=== PATIENT | female | born 1930 | race Caucasian/White ===

== ENCOUNTER 2016-04-17 18:40 | Inpatient (IN) | payer OTHER, BC ==
--- NOTE | 2016-04-17 19:28 | EDPHY ---
H & P Time Seen by Provider: 04/17/16 19:12 HPI/ROS: CHIEF COMPLAINT: Right hip pain HISTORY OF PRESENT ILLNESS: The patient is an 85-year-old female who presents to the emergency department after falling onto her right hip. Patient states she had a mechanical fall. She tripped and fell. She now has moderate pain on her right hip. It does not radiate. It is worse when she rotates her hip or tries to lift her femur. She denies numbness or tingling. She denies back pain. She did not strike her head or lose consciousness. No chest pain or shortness of breath. No preceding symptoms. The patient takes Coumadin 2.5 mg daily for atrial fibrillation REVIEW OF SYSTEMS: My complete review of systems is negative except as mentioned in the HPI. Smoking Status: Former smoker Physical Exam: Vitals noted GENERAL: Well-appearing, in no acute distress, alert. HEAD: No evidence of trauma. EYES: PERRLA, EOMI, normal to inspection. ENT: Airway intact, no dental or oral injury, no malocclusion, no hemotympanum , normal external examination. NECK: The trachea is midline. There is no crepitus. The C-spine is nontender. NEXUS criteria is negative (no midline tenderness, no distracting injury, no altered mental status, no recent alcohol use, no focal neurologic deficit). RESPIRATORY: Clear to auscultation bilaterally, no rales, rhonchi or wheezing. CVS: Regular rate and rhythm, no rubs, murmurs, or gallops. ABDOMEN: Soft, nontender. Pelvis: Stable. BACK: Normal to inspection, no spinal tenderness. SKIN: Normal color, warm, dry. No pallor or diaphoresis. EXTREMITIES: Right upper extremity: Atraumatic. No visible signs of trauma. No tenderness palpation. Neurovascular intact distally. Left upper extremity: Atraumatic. No visible signs of trauma. No tenderness palpation. Neurovascular intact distally. Right lower extremity: Tenderness to palpation of the right hip. No skin tenting or notable bruising. The right leg is shortened. Neurovascularly intact distally. Patient has discomfort with rotation of her right hip. Left lower extremity: Atraumatic. No visible signs of trauma. No tenderness palpation. Neurovascular intact distally. Atraumatic, neurovascularly intact distally in all extremities, pelvis is stable , hips with full range of motion, moves all extremities freely. NEURO/PSYCH: Alert and oriented x 3, GCS 15, normal mood and affect. Constitutional: Initial Vital Signs Temperature (C) 36.2 C 04/17/16 18:45 Heart Rate 93 04/17/16 18:45 Respiratory Rate 18 04/17/16 18:45 Blood Pressure 130/88 H 04/17/16 18:45 O2 Sat (%) 96 04/17/16 18:45 O2 Delivery Mode Room Air Allergies/Adverse Reactions: No Known Allergies Allergy (Unverified 04/17/16 18:49) Home Medications: Medication Instructions Recorded Cholecalciferol Vit D3 [Vitamin D3 50,000 unit PO Q30D 04/17/16 (*)] Donepezil HCl [Aricept 5 MG (*)] 10 mg PO DAILY 04/17/16 Escitalopram Oxalate [Lexapro] 20 mg PO DAILY 04/17/16 Furosemide [Lasix 20 MG (*)] 20 mg PO DAILY 04/17/16 Lisinopril [Zestril 2.5 mg (*)] 2.5 mg PO DAILY 04/17/16 Metoprolol Tartrate [Lopressor 25 25 mg PO BID 04/17/16 mg (*)] Mirtazapine [Remeron] 15 mg PO HS 04/17/16 Warfarin Sodium [Coumadin 2.5MG 2.5 mg PO DAILY16 04/17/16 (*)] Medical Decision Making - Diagnostics EKG Interpretation: Atrial fibrillation with V paced complexes at 88. ED Course/Re-evaluation: In the emergency department I discussed possible etiologies with the patient. I answered all her questions. She consented to x-ray and laboratory studies. Right hip x-ray: Please refer the dictated report by the radiologist. The patient has a subtrochanteric fracture. I discussed case with Dr. Finney. He was in the emergency department to evaluate the patient. I discussed the case with the hospitalist service. They agreed to admit the patient. I discussed the plan with the patient and answered all their questions. Differential Diagnosis: My differential includes but is not limited to fracture, dislocation, contusion , coagulopathy, dysrhythmia, ACS - Data Points Laboratory Results: Laboratory Results 04/17/16 19:35 04/17/16 19:35 04/17/16 04/17/16 04/17/16 19:35 19:35 19:35 WBC 8.58 10^3/uL 10^3/uL (3.80-9.50) RBC 4.19 10^6/uL 10^6/uL (4.18-5.33) Hgb 12.7 g/dL g/dL (12.6-16.3) Hct 38.5 % % (38.0-47.0) MCV 91.9 fL fL (81.5-99.8) MCH 30.3 pg pg (27.9-34.1) MCHC 33.0 g/dL g/dL (32.4-36.7) RDW 15.5 % H % (11.5-15.2) Plt Count 250 10^3/uL 10^3/uL (150-400) MPV 9.8 fL fL (8.7-11.7) Neut % (Auto) 63.5 % % (39.3-74.2) Lymph % (Auto) 28.3 % % (15.0-45.0) [place] % (Auto) 6.3 % % (4.5-13.0) Eos % (Auto) 0.9 % % (0.6-7.6) Baso % (Auto) 0.8 % % (0.3-1.7) Nucleat RBC Rel Count 0.0 % % (0.0-0.2) Absolute Neuts (auto) 5.44 10^3/uL 10^3/uL (1.70-6.50) Absolute Lymphs (auto) 2.43 10^3/uL 10^3/uL (1.00-3.00) Absolute Monos (auto) 0.54 10^3/uL 10^3/uL (0.30-0.80) Absolute Eos (auto) 0.08 10^3/uL 10^3/uL (0.03-0.40) Absolute Basos (auto) 0.07 10^3/uL 10^3/uL (0.02-0.10) Absolute Nucleated RBC 0.00 10^3/uL 10^3/uL (0-0.01) Immature Gran % 0.2 % % (0.0-1.1) Immature Gran # 0.02 10^3/uL 10^3/uL (0.00-0.10) PT 24.8 SEC H SEC (12.0-15.0) INR 2.22 H (0.83-1.16) APTT 30.3 SEC SEC (23.0-38.0) Sodium 140 mEq/L mEq/L (134-144) Potassium 3.1 mEq/L L mEq/L (3.5-5.2) Chloride 102 mEq/L mEq/L (97-110) Carbon Dioxide 25 mEq/l mEq/l (22-31) Anion Gap 13 mEq/L mEq/L (8-16) BUN 16 mg/dL mg/dL (7-23) Creatinine 0.6 mg/dL mg/dL (0.6-1.0) Estimated GFR > 60 Glucose 115 mg/dL H mg/dL (70-100) Calcium 8.9 mg/dL mg/dL (8.5-10.4) Departure - Departure Disposition: [facility] Inpatient Acute Clinical Impression: Subtrochanteric fracture of femur Qualifiers: Encounter type: initial encounter Fracture type: closed Fracture alignment: displaced Laterality: right Qualified Code(s): S72.21XA - Displaced subtrochanteric fracture of right femur, initial encounter for closed fracture Condition: Good Referrals: Juancarlos Bailey MD [Primary Care Provider] - As per Instructions
[2016-04-17 19:47] LABS: % IMMATURE GRANULYOCYTES 0.2 % (0.0-1.1); ABSOLUTE IMMATURE GRANULOCYTES 0.02 10^3/uL (0.00-0.10); ADD DIFF? NO; ADD MORPH? NO; ADD SCAN? NO; ATYPICAL LYMPHOCYTE FLAG 0 (0-99); FRAGMENT RBC FLAG 0 (0-99); HEMATOCRIT 38.5 % (38.0-47.0); HEMOGLOBIN 12.7 g/dL (12.6-16.3); LEFT SHIFT FLG 0 (0-99); LIPEMIA HEMOLYSIS FLAG 80 (0-99); MEAN CELL HEMOGLOBIN 30.3 pg (27.9-34.1); MEAN CELL VOLUME 91.9 fL (81.5-99.8); MEAN PLATELET VOLUME 9.8 fL (8.7-11.7); PLATELET CLUMPS FLAG 0 (0-99); PLATELET COUNT 250 10^3/uL (150-400); RED BLOOD CELL COUNT 4.19 10^6/uL (4.18-5.33); RED CELL DISTRIBUTION WIDTH 15.5 % (11.5-15.2)
[2016-04-17 19:55] LABS: APTT 30.3 SEC (23.0-38.0); INR 2.22 (0.83-1.16); PROTIME(PATIENT) 24.8 SEC (12.0-15.0)
[2016-04-17 19:56] LABS: ANION GAP 13 mEq/L (8-16); CALCIUM 8.9 mg/dL (8.5-10.4); CARBON DIOXIDE 25 mEq/l (22-31); CHLORIDE 102 mEq/L (97-110); CREATININE 0.6 mg/dL (0.6-1.0); GLOMERULAR FILTRATION RATE > 60; GLUCOSE 115 mg/dL (70-100); POTASSIUM 3.1 mEq/L (3.5-5.2); SODIUM 140 mEq/L (134-144)
--- NOTE | 2016-04-17 20:13 | CPEKG ---
Heart Rate: 88 RR Interval: 682 QRSD Interval: 144 QT Interval: 468 QTC Interval: 567 QRS [place]: 121 T Wave [place]: -84 EKG Severity - ABNORMAL ECG - EKG Impression: AFIB/FLUT AND V-PACED COMPLEXES EKG Impression: RBBB AND LPFB Electronically Signed By: Staci Lock 17-Apr-2016 22:25:36
--- NOTE | 2016-04-17 20:22 | PDCONSULT ---
Jewel Inspector Note: CC: R hip pain HPI: 85y/o F presents to the ED c/o R hip pain s/p fall this evening. Pt states she was at a restaurant this evening when she tripped and fell. She has since had localized pain in the R hip, she is unable to bear weight. Pt states she is comfortable while lying down, the pain bothers her when she tries to move the RLE. At baseline pt ambulates independently without difficulty and lives in an independent living facility. Pt denies any numbness or tingling. Pt has had a previous wrist fracture. She is treated for a-fib with warfarin daily. Pt also takes medication for depression, sleep and dementia. ALLERGIES: NKDA REVIEW OF SYSTEMS: Otherwise negative throughout a 10-point review. Vital Signs Temp Pulse Resp BP Pulse Ox 36.2 C 93 18 130/88 H 96 04/17/16 18:45 04/17/16 18:45 04/17/16 18:45 04/17/16 18:45 04/17/16 18:45 Vital Signs Temp Pulse Resp BP Pulse Ox 36.2 C 93 18 130/88 H 96 04/17/16 18:45 04/17/16 18:45 04/17/16 18:45 04/17/16 18:45 04/17/16 18:45 Laboratory Results 04/17/16 19:35 04/17/16 19:35 PT 24.8 SEC (12.0-15.0) H 04/17/16 19:35 INR 2.22 (0.83-1.16) H 04/17/16 19:35 Physical Exam Temp Pulse Resp BP Pulse Ox 36.2 C 93 18 130/88 H 96 04/17/16 18:45 04/17/16 18:45 04/17/16 18:45 04/17/16 18:45 04/17/16 18:45 Constitutional: no apparent distress Eyes: PERRL, EOMI Ears, Nose, Mouth, Throat: moist mucous membranes, hearing normal, no oral mucosal ulcers Peripheral Pulses: 2+: dorsalis-pedis (R), dorsalis-pedis (L) Respiratory: no respiratory distress Gastrointestinal: soft, non-tender abdomen Skin: warm, normal color, no rashes or abrasions, no fluctuance, no induration, other (no ecchymosis) Musculoskeletal: full muscle strength, no joint effusions, joint tenderness ( minimal TTP R greater trochanter), pain with ROM (R hip and knee ROM limited by pain. FROM of R ankle and foot with good strength), other (Calves soft, non- tender, negative George's, no pedal edema) Neurologic: AAOx3, sensation intact bilaterally Psychiatric: interacting appropriately Lymph, Heme, Immunologic: no cervical LAD Assessment & Plan Assessment: R intertrochanteric fracture s/p mechanical fall today. Pt will need to be taken to the OR for IM nail fixation of the R hip, cannot do fixation tonight because INR is too high. Will need INR to be lower before surgery. Plan: - Possible surgery tomorrow depending on INR level - Follow INR, possible vitamin K or FFP to reverse - Continue pain management - SCDs/TEDs for mechanical prophylaxis - NPO after midnight - MEMO ENGLISH
[2016-04-17] MEDS ORDERED: PHYTONADIONE 2 MG in NS 50 ML IV ONE (20:50)
[2016-04-17] MEDS ORDERED: NON-FORMULARY NEW DRUG (Mirtazapine [Remeron] 15 MG) PO SCH (21:00)
[2016-04-17] MEDS ORDERED: ONDANSETRON DISINTEGRATING 4 MG TAB PO PRN (21:32)
[2016-04-17] MEDS ORDERED: ONDANSETRON 4 MG/2 ML VIAL IVP PRN (21:32)
[2016-04-17] MEDS: MIRTAZAPINE 15 MG TAB PO SCH (21:41)
[2016-04-17] MEDS ORDERED: NS 1,000 ML IV SCH (21:45)
[2016-04-17] MEDS: METOPROLOL TARTRATE 25 MG TAB PO SCH (21:47)
[2016-04-17] MEDS: ACETAMINOPHEN 500 MG TAB PO SCH (21:48)
--- NOTE | 2016-04-17 22:02 | GHP ---
DATE OF ADMISSION: 04/17/2016 HISTORY OF PRESENT ILLNESS: The patient is an 85-year-old female with a history of atrial fibrillat ion and a mechanical fall today while leaving a restaurant. She fell on her right hip. She was tadeo ble to get up. She denies antecedent chest pain, shortness of breath, nausea, vomiting, diarrhea, l oss of consciousness, or presyncopal symptoms. This is a mechanical fall. She was brought to the e mergency department where she was found to have a right subtrochanteric fracture. The patient at baseline prior to this was able to achieve greater than 4 METs without difficulty, wi thout undue shortness of breath or chest pain. She has no history of coronary artery disease. She does have a pacer and atrial fibrillation. REVIEW OF SYSTEMS: Complete 10-point review of systems conducted and negative except as noted in th e HPI. PAST MEDICAL HISTORY: 1. Atrial fibrillation. 2. Pacemaker. 3. Mild dementia. 4. Hypertension. 5. Depression. HOME MEDICATIONS: Vitamin D3, mirtazapine, metoprolol, lisinopril, warfarin, furosemide, escitalopr am and donepezil. ALLERGIES: She has no known drug allergies. SOCIAL HISTORY: She drinks alcohol on Wednesdays and occasionally on the weekends. She is a nonsmo ker. She is DNR. She lives at [facility]. FAMILY HISTORY: Daughter is present and at the bedside and healthy. PHYSICAL EXAMINATION: VITAL SIGNS: Temperature 37, blood pressure 129/75, pulse 86, breathing 14 t imes a minute, 95% on room air. GENERAL: In no acute distress. HEENT: Sclerae anicteric. Oropharynx clear. Mucous membranes are moist. NECK: Supple without ly mphadenopathy or JVD. LUNGS: Clear to auscultation bilaterally. HEART: S1, S2. ABDOMEN: Soft, nontender, nondistended. LOWER EXTREMITIES: Without edema. Her right leg is not foreshortened nor is it externally rotated. LABS: White count 8.86, hematocrit 38.5. Platelets are 250,000. INR is 2.2. Sodium 140, potassiu m 3.1, chloride 101, bicarb 25, BUN 16, creatinine 0.6. TEST DATA: EKG interpreted by me shows a paced rhythm. Hip x-ray shows left subtrochanteric fractu re. I have discussed the case with Dr. Staci Lock. ASSESSMENT/PLAN: 1. 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 2. Underwent preoperative cardiac evaluation. The patient can achieve greater than 4 METs. May pr oceed to the OR without further workup or intervention. 3. Coagulopathy. The patient has an elevated INR of 2.2. She is on Coumadin. Will hold that. We have given her 2 mg of IV vitamin K and will repeat it early in the morning. If it is not less marquez n 1.5, will give an additional 2 mg of vitamin K. I anticipate that it will be. 4. Pain: Scheduled Tylenol, p.r.n. oxycodone. 5. Prophylaxis. Therapeutically anticoagulated. When her INR is less than 1.5, she needs pharmaco logic prophylaxis. 6. Code status. She is do not resuscitate. Inpatient status. /[id number]/MODL
[2016-04-18 05:25] LABS: % IMMATURE GRANULYOCYTES 0.3 % (0.0-1.1); ABSOLUTE IMMATURE GRANULOCYTES 0.03 10^3/uL (0.00-0.10); ADD DIFF? NO; ADD MORPH? NO; ADD SCAN? NO; ATYPICAL LYMPHOCYTE FLAG 0 (0-99); FRAGMENT RBC FLAG 0 (0-99); HEMATOCRIT 30.2 % (38.0-47.0); LEFT SHIFT FLG 0 (0-99); LIPEMIA HEMOLYSIS FLAG 80 (0-99); MEAN CELL HEMOGLOBIN 29.9 pg (27.9-34.1); MEAN CELL HEMOGLOBIN CONCENTR. 33.1 g/dL (32.4-36.7); MEAN CELL VOLUME 90.4 fL (81.5-99.8); MEAN PLATELET VOLUME 10.2 fL (8.7-11.7); PLATELET CLUMPS FLAG 0 (0-99); PLATELET COUNT 196 10^3/uL (150-400); RED BLOOD CELL COUNT 3.34 10^6/uL (4.18-5.33); RED CELL DISTRIBUTION WIDTH 15.5 % (11.5-15.2)
[2016-04-18] MEDS: ACETAMINOPHEN 500 MG TAB PO SCH ×3 (05:27→21:16)
[2016-04-18 05:30] LABS: INR 1.64 (0.83-1.16); PROTIME(PATIENT) 19.5 SEC (12.0-15.0)
[2016-04-18 05:57] LABS: ANION GAP 7 mEq/L (8-16); CALCIUM 8.3 mg/dL (8.5-10.4); CARBON DIOXIDE 26 mEq/l (22-31); CHLORIDE 106 mEq/L (97-110); CREATININE 0.6 mg/dL (0.6-1.0); GLOMERULAR FILTRATION RATE > 60; GLUCOSE 98 mg/dL (70-100); POTASSIUM 3.5 mEq/L (3.5-5.2); SODIUM 139 mEq/L (134-144)
[2016-04-18] MEDS ORDERED: LISINOPRIL 2.5 MG TAB PO SCH (09:00)
[2016-04-18] MEDS ORDERED: NON-FORMULARY NEW DRUG (Escitalopram Oxalate [Lexapro] 20 MG) PO SCH (09:00)
[2016-04-18] MEDS ORDERED: ceFAZolin 2 GM/DEXTROSE 100 ML IV ONE (09:22)
[2016-04-18] MEDS: ESCITALOPRAM OXALATE 10 MG TAB PO SCH (13:27)
[2016-04-18] MEDS: DONEPEZIL HCL 5 MG TAB PO SCH (13:27)
[2016-04-18] MEDS: METOPROLOL TARTRATE 25 MG TAB PO SCH ×2 (13:28→21:13)
--- NOTE | 2016-04-18 13:31 | SOAPPROG ---
SOAP Progress Note Assessment/Plan: Assessment: This is more of in intertroch hip fx pattern Plan: To OR this evening for compression hip screw Correct elevated PT/INR with FFP. Keep NPO 04/18/16 13:27 Subjective: Moderate Pain. Did not get much sleep Objective: Vital Signs Temp Pulse Resp BP Pulse Ox 37.1 C 83 16 102/65 95 04/18/16 08:02 04/18/16 08:02 04/18/16 08:02 04/18/16 08:02 04/18/16 08:02 Laboratory Results 04/18/16 04:22 04/18/16 04:22 04/17/16 04/18/16 04/19/16 05:59 05:59 05:59 Intake Total 200 Output Total 200 Balance 0 PT 19.5 SEC (12.0-15.0) H 04/18/16 04:22 INR 1.64 (0.83-1.16) H 04/18/16 04:22 CSMT OK, Moves foot and ankle well Elevated PT/INR ICD10 Worksheet Patient Problems: Problems Problem Status Onset Subtrochanteric fracture of femur Acute
--- NOTE | 2016-04-18 16:07 | HOSPPROG ---
Hospitalist Progress Note Assessment/Plan: # Acute left hip fracture - s/p mechanical fall - hip xray (personally reviewed and interpreted) subtrochanteric fracture - NPO in preparation for OR - reversing INR for OR - pain currently controlled # Atrial Fibrillation - INR 1.8 this am after vit K- rate controlled in 80's oxygen saturations 95% on RA - FFP prior to OR # HTN - BP slightly low this afternoon - will hold lisinopril and decrease metoprolol # diet - NPO # proph - holding for OR # dispo - > 2MN as requiring surgical repair and post op recovery I have discussed the case with Dr. Finney - we will give FFP prior to OR Subjective: feeling fine Objective: Vital Signs Temp Pulse Resp BP Pulse Ox 37.1 C 83 16 102/65 95 04/18/16 08:02 04/18/16 08:02 04/18/16 08:02 04/18/16 13:28 04/18/16 08:02 Laboratory Results 04/18/16 04:22 04/18/16 04:22 04/17/16 04/18/16 04/19/16 05:59 05:59 05:59 Intake Total 200 Output Total 200 Balance 0 PT 19.5 SEC (12.0-15.0) H 04/18/16 04:22 INR 1.64 (0.83-1.16) H 04/18/16 04:22 - Physical Exam Constitutional: appears nourished Eyes: anicteric sclera Ears, Nose, Mouth, Throat: moist mucous membranes Cardiovascular: regular rate and rhythym Respiratory: no respiratory distress Gastrointestinal: normoactive bowel sounds, soft, non-tender abdomen Genitourinary: no bladder fullness Skin: warm, normal color Musculoskeletal: No asymmetric calves Neurologic: AAOx3 Psychiatric: interacting appropriately, not anxious Lymph, Heme, Immunologic: no cervical LAD ICD10 Worksheet Patient Problems: Problems Problem Status Onset Subtrochanteric fracture of femur Acute
[2016-04-18] MEDS ORDERED: BACITRACIN 50,000 UNITS/10 ML SYR IRR ONE (16:26)
[2016-04-18] MEDS ORDERED: POLYMYXIN B SULFATE 500,000 UNIT/10 ML SYR IRR ONE (16:26)
[2016-04-18] MEDS ORDERED: CEFAZOLIN 2 GM/DEXTROSE/100 ML BAG IV ONE (16:44)
[2016-04-18] MEDS ORDERED: MIDAZOLAM 2 MG/2 ML VIAL ONE (16:56)
[2016-04-18] MEDS ORDERED: fentaNYL 100 MCG/2 ML INJ ONE ×2 (17:09→18:06)
[2016-04-18] MEDS ORDERED: PROPOFOL 200 MG/20 ML VIAL ONE (17:10)
[2016-04-18] MEDS ORDERED: LIDOCAINE 2% 5 ML SDV ONE (17:13)
[2016-04-18] MEDS ORDERED: ONDANSETRON 4 MG/2 ML VIAL ONE (18:38)
[2016-04-18] MEDS ORDERED: DEXAMETHASONE 4 MG/ML VIAL ONE (18:38)
[2016-04-18] MEDS ORDERED: PHENYLEPHRINE 10 MG/ML SDV ONE (18:40)
[2016-04-18] MEDS ORDERED: BUPIVACAINE/EPI 0.5% 30 ML SDV ONE (18:53)
[2016-04-18] MEDS ORDERED: TEMAZEPAM 15 MG CAP PO PRN (19:08)
[2016-04-18] MEDS ORDERED: ONDANSETRON 4 MG/2 ML VIAL IVP PRN (19:08)
[2016-04-18] MEDS ORDERED: OXYCODONE/APAP 5/325 TAB PO PRN (19:08)
[2016-04-18] MEDS ORDERED: PROMETHAZINE HCL 25 MG/ML INJ IVP PRN (19:08)
[2016-04-18] MEDS ORDERED: D5W 1/2 NS W/ 20 KCl/L 1,000 ML IV SCH (19:15)
[2016-04-18] MEDS ORDERED: WARFARIN SODIUM 2.5 MG TAB PO ONE (19:30)
[2016-04-18] MEDS: MIRTAZAPINE 15 MG TAB PO SCH (21:11)
--- NOTE | 2016-04-19 03:32 | GOP ---
DATE OF OPERATION: 04/18/2016 SURGEON: Mike Finney MD ANESTHESIA: General. PREOPERATIVE DIAGNOSIS: Right intertrochanteric hip fracture. POSTOPERATIVE DIAGNOSIS: Right intertrochanteric hip fracture. PROCEDURE PERFORMED: Open reduction, internal fixation right intertrochanteric hip fracture with Sy nthes compression hip screw system. FINDINGS: DESCRIPTION OF PROCEDURE: The patient taken to the operating room, administered general anesthesia. Placed in the supine position. Her fracture was reduced on the fracture table under fluoroscopic control. The right hip was prepped and draped in normal sterile fashion. Lateral incision was made through dermal subcutaneous tissues. The bleeders were cauterized. The IT band was then split erika gitudinally. The posterior aspect of the vastus lateralis was then incised with the cautery cutting tip. Vastus lateralis was then reflected anteriorly leaving a cuff posteriorly. The K-wire was pa ssed up through the femoral neck using 135 degree guide under fluoroscopic control. We felt we had good position in both AP and lateral planes. The pin length measured 95 mm. The step-cut drill was then set at the appropriate depth, and drilled over the pin. This was visualized under fluoroscopy . The screw was then placed over the drill guide after fixing the side plate. We elected to use a 4-hole sideplate. The sideplate was then impacted into position. The fracture was visualized and f ound to be excellently reduced. The plate was secured temporarily with a [place] clamp. 4.5 cortica l screws were used to anchor the plate. They measured 40 mm in length proximally, tapering to 34 mm in length distally. The lag screw utilized was a 95 mm length lag screw. We had excellent bone pu rchase. Thorough lavage was performed. An 1/8-inch drain was placed deeply. The vastus lateralis fascia was closed with a 0 Vicryl suture followed by closure of the IT band with a 0 Vicryl suture f ollowed by closure of the subcutaneous tissue with a 2-0 Vicryl suture followed by closure of the de rmis with paola. The drain was hooked up. A sterile compression dressing applied. The patient t olerated procedure well, and was transferred back to recovery in stable condition. There were no op erative complications. COMPLICATIONS: None. /[id number]/MODL
[2016-04-19] MEDS: ACETAMINOPHEN 500 MG TAB PO SCH ×3 (05:43→20:23)
[2016-04-19 06:27] LABS: % IMMATURE GRANULYOCYTES 0.5 % (0.0-1.1); ABSOLUTE IMMATURE GRANULOCYTES 0.04 10^3/uL (0.00-0.10); ADD DIFF? NO; ADD MORPH? NO; ADD SCAN? NO; ATYPICAL LYMPHOCYTE FLAG 0 (0-99); FRAGMENT RBC FLAG 0 (0-99); HEMATOCRIT 21.9 % (38.0-47.0); LEFT SHIFT FLG 10 (0-99); LIPEMIA HEMOLYSIS FLAG 80 (0-99); MEAN CELL HEMOGLOBIN 29.7 pg (27.9-34.1); MEAN CELL VOLUME 92.8 fL (81.5-99.8); MEAN PLATELET VOLUME 10.3 fL (8.7-11.7); PLATELET CLUMPS FLAG 0 (0-99); PLATELET COUNT 139 10^3/uL (150-400); RED BLOOD CELL COUNT 2.36 10^6/uL (4.18-5.33); RED CELL DISTRIBUTION WIDTH 15.5 % (11.5-15.2)
[2016-04-19 06:31] LABS: ANION GAP 6 mEq/L (8-16); CALCIUM 7.9 mg/dL (8.5-10.4); CARBON DIOXIDE 26 mEq/l (22-31); CHLORIDE 106 mEq/L (97-110); CREATININE 0.6 mg/dL (0.6-1.0); GLOMERULAR FILTRATION RATE > 60; GLUCOSE 137 mg/dL (70-100); SODIUM 138 mEq/L (134-144)
--- NOTE | 2016-04-19 07:09 | SOAPPROG ---
SOAP Progress Note Assessment/Plan: Assessment/Plan: Right intertrochanteric femur fracture s/p ORIF w/ DHS performed by Dr. Finney on 04/18/2016 -Cont PT/OT, Partial WB RLE 50% BW -Cont current PO pain regimen, transition to PO meds as tolerated -Cont SCDs and TEDs for VTE chemoprophylaxis -Cont Warfarin for VTE chemoprophylaxis -D/c drain likely tomorrow w/o significant output -Likely d/c to SNF when cleared 04/19/16 10:04 Subjective: Pt seen at bedside. No complaints of significant pain today. Pt states she is tolerating her diet and medications well. She notes she has not yet been up with PT/OT. She denies any new onset dumont, sob, cp, n/v/d, abd pain, n/t. She has no additional concerns or complaints at this time. Objective: Vital Signs Temp Pulse Resp BP Pulse Ox 36.7 C 80 16 92/58 L 97 04/19/16 03:27 04/19/16 03:27 04/19/16 03:27 04/19/16 03:27 04/19/16 03:27 Laboratory Results 04/19/16 04:35 04/19/16 04:35 04/18/16 04/19/16 04/20/16 05:59 05:59 05:59 Intake Total 200 2933 Output Total 200 1000 900 Balance 0 1933 -900 PT 19.5 SEC (12.0-15.0) H 04/18/16 04:22 INR 1.64 (0.83-1.16) H 04/18/16 04:22 Pt seen at bedside today, A&Ox3, appropriate mood and affect, pleasant and cooperative w/ today's exam. VSS. Asymptomatic post surgical anemia likely, cont to monitor. Exam of R LE reveals intact post operative dressing, minimal bleeding noted. Intact paola and drain. Surgical incision is w/o significant erythema, calor or induration. Pt moves leg well. Post calves NTTP , no palpable vascular cords, neg George's bilat. DNVI BLE. ICD10 Worksheet Patient Problems: Problems Problem Status Onset Subtrochanteric fracture of femur Acute
[2016-04-19] MEDS: oxyCODONE IR 5 MG TAB PO PRN ×2 (07:31→22:04)
[2016-04-19] MEDS: METOPROLOL TARTRATE 25 MG TAB PO SCH (08:22)
[2016-04-19] MEDS: ESCITALOPRAM OXALATE 10 MG TAB PO SCH (08:23)
[2016-04-19] MEDS: DONEPEZIL HCL 5 MG TAB PO SCH (08:23)
--- NOTE | 2016-04-19 15:55 | HOSPPROG ---
Hospitalist Progress Note Assessment/Plan: # Acute left hip fracture - s/p mechanical fall - pelvis xray (personally reviewed and interpreted) shows good postop alignment status post operative fixation overnight - pain currently controlled # Acute anemia 2/2 blood loss- hgb post op 7 this am patient dizzy this morning with standing - transfuse 1 unit packed red blood cells - recheck CBC in the a.m. # Atrial Fibrillation - INR 1.6 yest am after vit K- rate controlled in 80's oxygen saturations 95% on RA - can restart Coumadin per surgery - check INR in a.m. # HTN - BP remains low this afternoon - will hold lisinopril and metoprolol # diet - taking p.o. # proph - restarting warfarin # dispo - > 2MN as requiring surgical repair and post op recovery I have discussed the case with orthopedics- patient did well intraoperatively Subjective: felt dizzy when standing Objective: Vital Signs Temp Pulse Resp BP Pulse Ox 36.2 C 85 15 91/51 L 91 L 04/19/16 12:19 04/19/16 12:19 04/19/16 12:19 04/19/16 12:19 04/19/16 12:19 Laboratory Results 04/19/16 04:35 04/19/16 04:35 04/18/16 04/19/16 04/20/16 05:59 05:59 05:59 Intake Total 200 2933 450 Output Total 200 1000 1075 Balance 0 1933 -625 PT 19.5 SEC (12.0-15.0) H 04/18/16 04:22 INR 1.64 (0.83-1.16) H 04/18/16 04:22 - Physical Exam Constitutional: appears nourished Eyes: anicteric sclera Ears, Nose, Mouth, Throat: moist mucous membranes Cardiovascular: regular rate and rhythym Respiratory: no respiratory distress, no rales or rhonchi Gastrointestinal: normoactive bowel sounds, soft, non-tender abdomen Genitourinary: no bladder fullness Skin: warm, normal color Musculoskeletal: No asymmetric calves Neurologic: AAOx3 Psychiatric: interacting appropriately, not anxious Lymph, Heme, Immunologic: no cervical LAD ICD10 Worksheet Patient Problems: Problems Problem Status Onset Subtrochanteric fracture of femur Acute
[2016-04-19] MEDS ORDERED: WARFARIN SODIUM 2.5 MG TAB PO SCH (16:00)
[2016-04-19] MEDS: MIRTAZAPINE 15 MG TAB PO SCH (20:23)
[2016-04-20] MEDS: ACETAMINOPHEN 500 MG TAB PO SCH (05:04)
[2016-04-20 06:00] LABS: % IMMATURE GRANULYOCYTES 0.5 % (0.0-1.1); ABSOLUTE IMMATURE GRANULOCYTES 0.05 10^3/uL (0.00-0.10); ADD DIFF? NO; ADD MORPH? NO; ADD SCAN? NO; ATYPICAL LYMPHOCYTE FLAG 0 (0-99); FRAGMENT RBC FLAG 0 (0-99); HEMATOCRIT 23.3 % (38.0-47.0); HEMOGLOBIN 7.7 g/dL (12.6-16.3); LEFT SHIFT FLG 0 (0-99); LIPEMIA HEMOLYSIS FLAG 80 (0-99); MEAN CELL HEMOGLOBIN 30.2 pg (27.9-34.1); MEAN CELL VOLUME 91.4 fL (81.5-99.8); MEAN PLATELET VOLUME 10.4 fL (8.7-11.7); PLATELET CLUMPS FLAG 10 (0-99); PLATELET COUNT 147 10^3/uL (150-400); RED BLOOD CELL COUNT 2.55 10^6/uL (4.18-5.33); RED CELL DISTRIBUTION WIDTH 15.7 % (11.5-15.2)
[2016-04-20 06:06] LABS: INR 1.72 (0.83-1.16); PROTIME(PATIENT) 20.2 SEC (12.0-15.0)
[2016-04-20 06:07] LABS: ANION GAP 5 mEq/L (8-16); CARBON DIOXIDE 28 mEq/l (22-31); CHLORIDE 107 mEq/L (97-110); CREATININE 0.7 mg/dL (0.6-1.0); GLOMERULAR FILTRATION RATE > 60; GLUCOSE 90 mg/dL (70-100); POTASSIUM 4.1 mEq/L (3.5-5.2); SODIUM 140 mEq/L (134-144)
[2016-04-20 07:43] VITALS: RESP 14
[2016-04-20] MEDS: ESCITALOPRAM OXALATE 10 MG TAB PO SCH (09:15)
[2016-04-20] MEDS: DONEPEZIL HCL 5 MG TAB PO SCH (09:15)
--- NOTE | 2016-04-20 09:30 | SOAPPROG ---
SOAP Progress Note Assessment/Plan: Assessment/Plan: s/p ORIF with DHS for R hip intertrochanteric fracture POD#2 - Continue pain management - Continue PT/OT - Dressing change today - Drain removal today - Monitor H&H - SCDs/TEDs for mechanical prophylaxis - Coumadin restarted for VTE chemoprophylaxis 04/20/16 09:29 04/20/16 09:30 Subjective: Pt states she is doing well and pain is manageable. Pt was OOB yesterday with PT. Pt denies fever, chills, chest pain, SOB, abdominal pain, N/V/D, calf pain, numbness and tingling. Objective: Drain output 3mL over the past 24hours, H&H up to 7.7 after 1 unit PRBCs yesterday Vital Signs Temp Pulse Resp BP Pulse Ox 37.0 C 83 14 116/66 98 04/20/16 07:42 04/20/16 07:42 04/20/16 07:42 04/20/16 07:42 04/20/16 07:42 Laboratory Results 04/20/16 04:52 04/20/16 04:52 04/19/16 04/20/16 04/21/16 05:59 05:59 05:59 Intake Total 2933 860 Output Total 1000 1378 Balance 1933 -518 PT 20.2 SEC (12.0-15.0) H 04/20/16 04:52 INR 1.72 (0.83-1.16) H 04/20/16 04:52 Physical Exam - Physical Exam General Appearance: alert, no apparent distress Peripheral Pulses: 2+: dorsalis-pedis (R), dorsalis-pedis (L) Skin: normal color, warm/dry, other (incision site c/d/i) Extremities: normal inspection, normal capillary refill, No pedal edema, No calf tenderness, No swelling, No George's sign Neuro/Psych: no motor/sensory deficits, alert, normal mood/affect ICD10 Worksheet Patient Problems: Problems Problem Status Onset Subtrochanteric fracture of femur Acute
[2016-04-20 11:46] VITALS: BP 106/46; PULSE 80; TEMP 98.1; O2SAT 92
--- NOTE | 2016-04-20 12:17 | PDIAF ---
- Diagnosis Diagnosis: Hip fx Code Status: Do Not Resuscitate - Medication Management Discharge Medications: Medications to Continue on Transfer Cholecalciferol Vit D3 [Vitamin D3 (*)] 50,000 unit PO Q30D 04/17/16 [Last Taken 03/28/16] Donepezil HCl [Aricept 5 MG (*)] 10 mg PO DAILY 04/17/16 [Last Taken Unknown] Escitalopram Oxalate [Lexapro] 20 mg PO DAILY 04/17/16 [Last Taken Unknown] Furosemide [Lasix 20 MG (*)] 20 mg PO DAILY 04/17/16 [Last Taken 04/17/16] Lisinopril [Zestril 2.5 mg (*)] 2.5 mg PO DAILY 04/17/16 [Last Taken Unknown] Metoprolol Tartrate [Lopressor 25 mg (*)] 25 mg PO BID 04/17/16 [Last Taken ] Mirtazapine [Remeron] 15 mg PO HS 04/17/16 [Last Taken 04/16/16] Warfarin Sodium [Coumadin 2.5MG (*)] 2.5 mg PO DAILY16 04/17/16 [Last Taken Unknown] Acetaminophen [Tylenol ES 500 mg (*)] 1,000 mg PO Q8 #0 tab 04/20/16 [Last Taken Unknown] oxyCODONE IR [Oxycodone Ir (*)] 2.5 - 5 mg PO Q3HRS PRN #0 tab 04/20/16 [Last Taken Unknown] Discharge Medications: Refer to the Discharge Home Medication list for PRN reason. PICC Care - Routine: N/A - Orders Services needed: Registered Nurse, Physical Therapy, Occupational Therapy Diet Recommendation: no restrictions on diet - Labs/Radiology HCT/HGB Date: 04/22/16 PT/INR Date: 04/22/16 - Follow Up Care Current Providers and Referrals: Juancarlos Bailey MD [Primary Care Provider] - As per Instructions
--- NOTE | 2016-04-20 18:58 | GDS ---
DISCHARGE DIAGNOSES: 1. Acute left hip fracture. 2. Acute anemia secondary to blood loss. 3. History of atrial fibrillation. 4. Hypertension. CONSULTATIONS: Dr. Finney of Orthopedics. STUDIES AND PROCEDURES DONE: ORIF of the right hip. PHYSICAL EXAMINATION: GENERAL: The patient is alert. VITAL SIGNS: Afebrile at 36.7, pulse is 80, respiratory rate is 14, blood pressure is 106/46. She is saturating 92% on 2 L. I have seen and e valuated the patient on the day of discharge. HOSPITAL COURSE: The patient is an 85-year-old female who presented to the emergency room after suf fering a mechanical fall. She was evaluated and diagnosed with: 1. Acute right hip fracture. During this hospitalization, she received surgical intervention by Dr Enzo Finney. She is postop day 3 and stable with regard to this condition. She will require outpatient physical therapy and occupational therapy in assisted facility. 2. Acute anemia secondary to blood loss. This appears to be stable, and the patient will initiate iron replacement at her own doing. 3. History of atrial fibrillation. The patient is chronically anticoagulated on Coumadin. Her Cou madin has been re-initiated prior to disposition and will be followed in the outpatient setting. 4. Hypertension. This is stable at the time of disposition. DISPOSITION: The patient will be discharged to [facility] for further rehabilitation and management . There are no pending studies. DISCHARGE MEDICATIONS: Please refer to EMR form. I have not changed any of the patient's previousl y prescribed home medications to the best of my knowledge and no prescriptions have been provided. FOLLOWUP: Follow up will be with her primary care physician, as well as laboratory evaluation of he r hemoglobin and hematocrit as well as her INR on 04/22/2016. I spent greater than 35 minutes in the care, coordination and management of this patient's dispositi on. /[id number]/MODL
[2016-04-25] MEDS ORDERED: CHOLECALCIFEROL VIT D3 50,000 UNIT CAP PO SCH (09:00)
== END 2016-04-20 14:08 | DRG 481 ==
LOC: F3N 20:38 → OBSVTOIN 21:33
PROVIDERS: ADMIT Internal Medicine; ATTEND Internal Medicine
PROC: 30233K1 Transfusion of Nonautologous Frozen Plasma into Peripheral Vein, Percutaneous Approach (ICD-10-PCS; 2016-04-18)
PROC: 30233N1 Transfusion of Nonautologous Red Blood Cells into Peripheral Vein, Percutaneous Approach (ICD-10-PCS; 2016-04-18)
PROC: 0QS604Z Reposition Right Upper Femur with Internal Fixation Device, Open Approach (ICD-10-PCS; principal; 2016-04-18 17:30)
DX: S72.21XA Displaced subtrochanteric fracture of right femur, initial encounter for closed fracture (principal); D62 Acute posthemorrhagic anemia; I48.91 Unspecified atrial fibrillation; I10 Essential (primary) hypertension; Z79.01 Long term (current) use of anticoagulants; Z95.0 Presence of cardiac pacemaker; W01.0XXA Fall on same level from slipping, tripping and stumbling without subsequent striking against object, initial encounter; Y92.511 Restaurant or cafe as the place of occurrence of the external cause; Z66 Do not resuscitate
CPT/HCPCS: 97116-GP; 97161-GP; 97165-GO; 97530-GO; 97535-GO; C1713; C1769; G8978-GP-CK; G8979-GP-CJ; G8980-GP-CJ; G8987-GO-CJ; G8987-GO-CK; G8988-GO-CJ; G8989-GO-CJ; J0690; J1100; J2250; J2370; J2405; J2704; J3010; J3430; P9017; P9021